=== PATIENT | female | born 1985 | race Two or more races ===

== ENCOUNTER 2021-09-04 21:26 | Emergency (ER) | payer MEDICAID, OTHER ==
[~2021-09-04] VITALS: Ht 165.1 cm; Wt 95.3 kg
[2021-09-04] MEDS ORDERED: ACETAMINOPHEN 325 MG TAB PO ONE (22:00)
[2021-09-04] MEDS ORDERED: IBUPROFEN 600 MG TAB PO ONE (23:00)
[2021-09-05 00:05] VITALS: BP 132/78
== END 2021-09-05 00:52 | disposition home or self-care (01) ==
LOC: ER 21:26 → EDBD 21:26 → ER 09-05 00:46
DX: M25.571 Pain in right ankle and joints of right foot (principal); M25.562 Pain in left knee; M54.2 Cervicalgia; R10.9 Unspecified abdominal pain; V49.9XXA Car occupant (driver) (passenger) injured in unspecified traffic accident, initial encounter; Y93.89 Activity, other specified; Y92.410 Unspecified street and highway as the place of occurrence of the external cause; Y99.8 Other external cause status
CPT/HCPCS: 36415; 71250; 72125; 73600; 74176; 84484

== ENCOUNTER 2022-06-21 15:21 | Inpatient (IN) | payer MEDICAID ==
[~2022-06-21] VITALS: Ht 165.1 cm; Wt 135.0 kg
[2022-06-21] MEDS: ceFAZolin 1GM/50ML 50 ML IV SCH (03:00)
[~2022-06-21 15:21] MED LIST: KETAMINE 50mg/ML 10ml Vial (500mg/10ml) IV ONE; PHENYLEPHRINE HCL 10 MG/ML VL IV ONE
[2022-06-21 17:57] LABS: Eosinophils # (auto) 0.2 10 ^3/uL (0-0.8); Hematocrit 33.9 % (36.0-46.0); Monocytes # (auto) 0.6 10 ^3/uL (0-1.3); Monocytes % (auto) 4.2 % (0.0-12.0)
[2022-06-21 17:57] LABS: Urine Bacteria FEW /hpf (None Seen); Urine Blood 3+ /uL (Negative); Urine Specific Gravity 1.019 (1.001-1.035); Urine WBC 7 /hpf (0 - 5)
[2022-06-21 17:59] LABS: Basophils # (auto) 0.2 10 ^3/uL (0-0.2); Basophils % (auto) 1.2 % (0.0-2.0); Eosinophils % (auto) 1.3 % (0.0-7.0); Hemoglobin 10.7 g/dL (12.2-16.2); Lymphocytes # (auto) 2.5 10 ^3/uL (0.4-5.4); Lymphocytes % (auto) 18.8 % (10.0-50.0); Mean Corpuscular Hemoglobin 24.2 pg (28.0-32.0); Mean Corpuscular Hgb Conc. 31.6 g/dL (32.0-36.0); Mean Corpuscular Volume 76.5 fL (80.0-100.0); Neutrophils # (auto) 9.8 10 ^3/uL (1.6-8.6); Neutrophils % (auto) 74.5 % (37.0-80.0); Red Blood Cells 4.43 10^6/uL (4.0-5.20); White Blood Cell 13.1 10^3/uL (4.4-10.8)
[2022-06-21 18:23] LABS: Albumin 3.2 g/dL (3.4-5.0); Calcium 8.7 mg/dL (8.5-10.1); Potassium 3.9 mmol/L (3.5-5.1)
[2022-06-21 18:27] LABS: BUN/Creatinine Ratio 12.9 (10.0-20.0); Bilirubin, Total 0.2 mg/dL (0.2-1.0)
[2022-06-21] MEDS ORDERED: DOCU-94 PO (21:15)
[2022-06-21] MEDS ORDERED: HYDR-4902 PO (21:16)
[2022-06-21] MEDS ORDERED: FER325T PO (21:16)
[2022-06-21] MEDS ORDERED: EPINEPHrine HCL 1 MG/1 ML AMP ONE (21:27)
[2022-06-21] MEDS ORDERED: GLYCOPYRROLATE 0.2 MG/ML 1ML VIAL ONE (21:28)
[2022-06-21] MEDS ORDERED: ONDANSETRON HCL 4 MG/2 ML VIAL ONE (21:28)
[2022-06-21] MEDS ORDERED: LIDOCAINE 2% (LOCAL ANESTH.) PF 5ml SDV ONE (21:28)
[2022-06-21] MEDS ORDERED: KETOROLAC TROMETH 30 MG/ML 1ML VIAL ONE (21:28)
[2022-06-21] MEDS ORDERED: DexAMETHasone SOD PHOS 10MG/1ML VIAL INJ ONE (21:28)
[2022-06-21] MEDS ORDERED: PROPOFOL 10 MG/ML 20 ML IV ONE (21:28)
[2022-06-21] MEDS ORDERED: ROCURONIUM 10MG/ML 10ML VIAL IV ONE (21:29)
[2022-06-21] MEDS ORDERED: fentaNYL CITRATE 100 MCG/2 ML VL ONE (21:29)
[2022-06-21] MEDS ORDERED: SUGAMMADEX 200mg/2ml Vial (100MG/ML) IV ONE (21:29)
[2022-06-21] MEDS ORDERED: LACT. RINGERS/OXYTOCIN 20UNITS 1,000 ML IV ONE (21:30)
[2022-06-21] MEDS ORDERED: HYDROmorphone HCL 2 MG/ML VL/or syr IV PRN (21:30)
[2022-06-21] MEDS ORDERED: GUM (CHEWING) 1 GUM CHEW CHEW ONE (21:30)
[2022-06-21] MEDS ORDERED: ONDANSETRON HCL 4 MG/2 ML VIAL IV PRN ×2 (21:30→23:30)
[2022-06-21] MEDS ORDERED: ceFAZolin 1GM/50ML 100 ML IV ONE (21:32)
[2022-06-21 21:56] LABS: INR 0.92 (0.9-1.15); Partial Thromboplastin Time 26.5 sec (24.6-33.4)
[2022-06-21] MEDS ORDERED: FLUMAZENIL 0.1 MG/ML INJ 10ML MDV IV PRN (23:30)
[2022-06-21] MEDS ORDERED: fentaNYL CITRATE 100 MCG/2 ML VL IV PRN (23:30)
[2022-06-21] MEDS ORDERED: LABETALOL HCL 5 MG/ML 4ML SYRINGE IV PRN (23:30)
[2022-06-21] MEDS ORDERED: ePHEDrine SULFATE 50 MG/ML AMP IV PRN (23:30)
[2022-06-21] MEDS ORDERED: NALOXONE HCL 0.4 MG/ML VIAL IV PRN (23:30)
[2022-06-21] MEDS ORDERED: oxyCODONE HCL 5MG TAB PO PRN (23:30)
[2022-06-21] MEDS ORDERED: hydrALAZINE HCL 20 MG/ML VL IV PRN (23:30)
[2022-06-21] MEDS: HYDROmorphone HCL 2 MG/ML VL/or syr IV PRN ×2 (23:30→23:43)
[2022-06-22] VITALS (8 sets, daily range): BP systolic 105–124; BP diastolic 45–86
[2022-06-22] MEDS ORDERED: HYDROmorphone HCL 2 MG/ML VL/or syr ONE (01:33)
[2022-06-22] MEDS ORDERED: LACT. RINGERS/OXYTOCIN 20UNITS 1,000 ML IV ONE (02:00)
[2022-06-22] MEDS ORDERED: ceFAZolin 1GM/50ML 50 ML IV ONE (02:31)
[2022-06-22] MEDS: ceFAZolin 1GM/50ML 50 ML IV SCH ×4 (03:00→21:20)
[2022-06-22] MEDS ORDERED: GUM (CHEWING) 1 GUM CHEW CHEW ONE (03:58)
[2022-06-22] MEDS ORDERED: HYDROmorphone HCL 2 MG/ML VL/or syr IV PRN (06:30)
[2022-06-22] MEDS ORDERED: ONDANSETRON HCL 4 MG/2 ML VIAL IV PRN (06:30)
[2022-06-22] MEDS ORDERED: HYDROcodone-ACET 10/325MG TAB PO PRN (07:15)
[2022-06-22] MEDS ORDERED: BISACODYL 10 MG RECT SUPP PR PRN (07:30)
[2022-06-22] MEDS ORDERED: DOCUSATE SOD 100 MG CAP PO PRN (07:30)
[2022-06-22] MEDS ORDERED: RHO (D) IMMUNE GLOBULIN 300 MCG INJ IM PRN (07:30)
[2022-06-22] MEDS: HYDROcodone-ACET 10/325MG TAB PO PRN ×2 (09:50→21:21)
[2022-06-22] MEDS: SIMETHICONE 80 MG CHEWABLE TABLET PO SCH ×3 (12:09→21:20)
[2022-06-22] MEDS: oxyCODONE HCL 5MG TAB PO PRN (15:15)
[2022-06-23 05:11] VITALS: BP 104/51
[2022-06-23] MEDS: SIMETHICONE 80 MG CHEWABLE TABLET PO SCH ×4 (05:37→22:22)
[2022-06-23] MEDS: ceFAZolin 1GM/50ML 50 ML IV SCH ×3 (05:37→22:22)
[2022-06-23] MEDS: oxyCODONE HCL 5MG TAB PO PRN ×2 (05:47→19:33)
[2022-06-23 08:00] VITALS: BP 111/57
[2022-06-23 09:00] VITALS: BP 111/57
[2022-06-23 13:00] VITALS: BP 115/66
[2022-06-23] MEDS: HYDROcodone-ACET 10/325MG TAB PO PRN (14:20)
[2022-06-23 16:58] VITALS: BP 94/45
[2022-06-23 22:00] VITALS: BP 114/39
[2022-06-24 05:00] VITALS: BP 116/61
[2022-06-24] MEDS: SIMETHICONE 80 MG CHEWABLE TABLET PO SCH (05:25)
[2022-06-24] MEDS: ceFAZolin 1GM/50ML 50 ML IV SCH (05:25)
[2022-06-24] MEDS: oxyCODONE HCL 5MG TAB PO PRN (05:26)
[2022-06-24 09:00] VITALS: BP 130/75
[2022-06-24] MEDS ORDERED: CEPH500T PO (09:01)
[2022-06-24 10:30] VITALS: BP 130/75
[2022-06-24] MEDS: HYDROcodone-ACET 10/325MG TAB PO PRN (10:58)
== END 2022-06-24 11:50 | disposition home or self-care (01) | DRG 547 ==
LOC: ER 15:21 → OVERFLOW 23:55 → CENTRAL 06-22 01:15
PROVIDERS: ADMIT Obstetrics & Gynecology; ATTEND Obstetrics & Gynecology
PROC: 0UT00ZZ Resection of Right Ovary, Open Approach (ICD-10-PCS; 2022-06-21)
PROC: 0DNW0ZZ Release Peritoneum, Open Approach (ICD-10-PCS; 2022-06-21)
PROC: 0UT70ZZ Resection of Bilateral Fallopian Tubes, Open Approach (ICD-10-PCS; principal; 2022-06-21 21:45)
DX: O00.102 Left tubal pregnancy without intrauterine pregnancy (principal); O08.0 Genital tract and pelvic infection following ectopic and molar pregnancy; E66.01 Morbid (severe) obesity due to excess calories; N83.8 Other noninflammatory disorders of ovary, fallopian tube and broad ligament
CPT/HCPCS: 36415; 76801; 76817; 80053; 81001; 84702; 85025; 85610; 85730; 86850; 86900; 86901; 96374; G0378; J0171; J0690; J1100; J1885; J2001; J2405; J2590; J2704

== ENCOUNTER 2022-11-23 15:39 | Emergency (ER) | payer MEDICAID, OTHER ==
[~2022-11-23] VITALS: Ht 152.4 cm; Wt 129.8 kg
[~2022-11-23 15:39] MED LIST changes: +CEPH500T PO; +DOCU-94 PO; +FER325T PO; +HYDR-4902 PO; -KETAMINE 50mg/ML 10ml Vial (500mg/10ml) IV ONE; -PHENYLEPHRINE HCL 10 MG/ML VL IV ONE
[2022-11-23 18:38] VITALS: BP 105/39; PULSE 67; RESP 18; O2SAT 98
[2022-11-23 18:43] VITALS: TEMP 97.6
[2022-11-23] MEDS ORDERED: IBUPROFEN 800 MG TAB PO ONE (18:45)
== END 2022-11-23 20:45 | disposition left against medical advice (07) ==
LOC: ER 15:39
DX: M25.531 Pain in right wrist (principal); Z87.891 Personal history of nicotine dependence; Z79.899 Other long term (current) drug therapy; V43.62XA Car passenger injured in collision with other type car in traffic accident, initial encounter; Y93.89 Activity, other specified; Y92.410 Unspecified street and highway as the place of occurrence of the external cause; Y99.8 Other external cause status
CPT/HCPCS: 73110